=== PATIENT | female | born 1975 | race Caucasian/White ===

== ENCOUNTER 2018-09-25 13:23 | Day surgery (SDC) | payer BC, OTHER ==
[~2018-09-25] VITALS: Ht 175.3 cm; Wt 101.8 kg
[2018-09-25] MEDS ORDERED: LACTATED RINGERS 1,000 ML IV SCH ×2 (13:37→20:30)
[2018-09-25] MEDS ORDERED: LISI-167 PO (13:54)
[2018-09-25] MEDS ORDERED: LEVO100T5 PO (13:54)
[2018-09-25] MEDS ORDERED: CETI10CA PO (13:54)
[2018-09-25] MEDS ORDERED: BUPR150T73 PO (13:54)
[2018-09-25 14:00] LABS: HCG UR SG 1.014 (1.003-1.030)
[2018-09-25] MEDS ORDERED: PLEASE ENTER HEIGHT AND WEIGHT MC SCH (14:00)
[2018-09-25] MEDS ORDERED: PLEASE ENTER ALLERGIES MC SCH (14:00)
[2018-09-25 14:08] LABS: MICROSCOPIC INDICATED
[2018-09-25 14:19] LABS: CULTURE INDICATED? YES
[2018-09-25 14:22] VITALS: BP 109/76
[2018-09-25] MEDS ORDERED: BUPIVACAINE/EPI 0.5% 1:200K ONE (14:35)
[2018-09-25] MEDS ORDERED: FENTANYL PF 250 MCG/5ML ONE (15:01)
[2018-09-25] MEDS ORDERED: MIDAZOLAM 1 MG/ML, 2ML ONE ×2 (15:01→18:24)
[2018-09-25] MEDS ORDERED: ROCURONIUM 10 MG/ML,10ML ONE (15:10)
[2018-09-25] MEDS ORDERED: DEXAMETHASONE 4 MG/ML, 1ML ONE (15:10)
[2018-09-25] MEDS ORDERED: GLYCOPYRROLATE 0.2MG/1ML, 5ML ONE (15:10)
[2018-09-25] MEDS ORDERED: NEOSTIGMINE 1 MG/ML, 10ML ONE (15:10)
[2018-09-25] MEDS ORDERED: ONDANSETRON 2MG/ML, 2ML ONE (15:10)
[2018-09-25] MEDS ORDERED: CEFAZOLIN 1,000 MG ONE (15:10)
[2018-09-25] MEDS ORDERED: PROPOFOL 10 MG/ML, 20ML ONE (15:10)
[2018-09-25] MEDS ORDERED: SUCCINYLCHOLINE 20 MG/ML, 10ML ONE (15:10)
[2018-09-25] MEDS ORDERED: LABETALOL 5MG/ML, 20ML IV PRN (16:00)
[2018-09-25] MEDS ORDERED: OXYcodone 5 MG/5 ML ORAL.SOL UDC PO PRN ×2 (16:00→20:30)
[2018-09-25] MEDS ORDERED: KETOROLAC 30 MG/1 ML IV PRN ×2 (16:00→20:30)
[2018-09-25] MEDS ORDERED: hydrALAzine 20 MG/ML, 1ML IV PRN (16:00)
[2018-09-25] MEDS ORDERED: ONDANSETRON 2MG/ML, 2ML IVPush PRN ×2 (16:00→20:30)
[2018-09-25] MEDS ORDERED: ALBUTEROL SULFATE 2.5 MG/3 ML NPPB PRN (16:00)
[2018-09-25] MEDS ORDERED: PROMETHAZINE 25 MG/ML, 1ML IV PRN (16:00)
[2018-09-25] MEDS ORDERED: METOCLOPRAMIDE 5 MG/ML, 2ML IV PRN (16:00)
[2018-09-25] MEDS ORDERED: MEPERIDINE/PF 25MG/0.5ML IVPush PRN (16:00)
[2018-09-25] MEDS ORDERED: FENTANYL PF 100 MCG/2ML ONE ×3 (18:14→19:04)
[2018-09-25] MEDS ORDERED: HYDROmorphone 2 MG/ML, 1ML ONE (18:25)
[2018-09-25] MEDS ORDERED: OXYcodone 5 MG/5 ML ORAL.SOL UDC ONE (18:25)
[2018-09-25] MEDS: FENTANYL PF 100 MCG/2ML IV PRN ×4 (18:43→19:22)
[2018-09-25] MEDS: HYDROmorphone 1 MG/ML, 1ML INJ IV PRN ×4 (18:43→19:09)
[2018-09-25] MEDS ORDERED: KETOROLAC 30 MG/1 ML ONE (19:03)
[2018-09-25] MEDS ORDERED: LORazepam 2 MG/ML, 1ML IVPush PRN (19:30)
[2018-09-25] MEDS ORDERED: HYDROmorphone 2 MG/ML, 1ML IV PRN (20:30)
[2018-09-25] MEDS ORDERED: OXYcodone/APAP 5/325MG TABLET PO PRN (20:30)
== END 2018-09-25 22:27 | disposition home or self-care (01) ==
LOC: OUT 13:23 → 4NOR 19:54 → OUT 22:27
PROVIDERS: ATTEND Surgery
DX: K43.0 Incisional hernia with obstruction, without gangrene (principal); Z53.31 Laparoscopic surgical procedure converted to open procedure; I10 Essential (primary) hypertension; F41.9 Anxiety disorder, unspecified; F43.10 Post-traumatic stress disorder, unspecified; E07.9 Disorder of thyroid, unspecified; F17.210 Nicotine dependence, cigarettes, uncomplicated; Z72.89 Other problems related to lifestyle; Z79.890 Hormone replacement therapy; Z79.899 Other long term (current) drug therapy; Z90.721 Acquired absence of ovaries, unilateral; Z82.61 Family history of arthritis; Z80.1 Family history of malignant neoplasm of trachea, bronchus and lung
CPT/HCPCS: 49566; 49568; 64488; 74018; 81001; 81025; 87086; C1781; J0330; J0690; J1100; J1170; J1885; J2405; J2704; J2710; J3010; J7120; G0378; J2250